=== PATIENT | male | born 1960 ===

== ENCOUNTER 2021-12-28 10:15 | Inpatient (IN) | payer OTHER ==
[~2021-12-28] VITALS: Ht 170.2 cm; Wt 83.9 kg
[2021-12-28] MEDS ORDERED: ZESTRIL5 MG PO (13:10)
[2021-12-28] MEDS ORDERED: CRESTOR20 MG PO (13:11)
[2021-12-30] MEDS ORDERED: OMEPRAZOLE20 MG (09:10)
[2021-12-30] MEDS ORDERED: DSS100 MG (09:10)
[2021-12-31] MEDS ORDERED: ULTRAM50 MG PO (13:13)
== END 2021-12-31 17:33 | disposition home or self-care (01) | DRG 343 ==
LOC: ADM 10:15 → EDSTATUS 10:15 → O/R 12-30 06:15 → SURH 12-30 06:15
PROVIDERS: ADMIT Surgery; ATTEND Surgery
PROC: 0DTJ4ZZ Resection of Appendix, Percutaneous Endoscopic Approach (ICD-10-PCS; principal; 2021-12-30 11:15)
DX: D12.1 Benign neoplasm of appendix (principal); Z20.822 Contact with and (suspected) exposure to COVID-19